=== PATIENT | male | born 1960 | race Caucasian/White ===

== ENCOUNTER 2020-09-09 08:20 | Day surgery (SDC) | payer OTHER ==
--- NOTE | 2020-09-09 07:50 | HP ---
DATE OF SURGERY: 09/09/2020 HISTORY OF PRESENT ILLNESS: The patient is a 59 year old with history of polyps, history of colon infection afterwards in the past. No bloody stools. No change in bowel movements. No abdominal pain. Family history negative for colon cancer. The patient years ago took some Asacol for some diverticular disease and inflammatory bowel disease, etiology is unclear at the time. He is in need of follow up colonoscopy given history of polyps. PAST MEDICAL HISTORY: No chronic illnesses. PAST SURGICAL HISTORY: Prior colonoscopy. MEDICATIONS: Asacol, aspirin, Nexium, Simvastatin, Probiotic. ALLERGIES: NKDA. FAMILY HISTORY: Negative for colon cancer. SOCIAL HISTORY: No alcohol abuse. REVIEW OF SYSTEMS: Fourteen systems reviewed negative or noncontributory as above and per preadmission questionnaire. PHYSICAL EXAMINATION: GENERAL: No acute distress. HEENT: Sclerae nonicteric. NECK: No JVD. CHEST: Equal excursion, nonlabored breathing. CVS: Regular rate and rhythm. ABDOMEN: Soft. No peritoneal signs. EXTREMITIES: No significant edema. NEURO: Alert, oriented, moving extremities symmetrically. No gross motor deficits noted. PSYCH: Appropriate mood and affect. IMPRESSION: History of polyps. He is in need of follow up colonoscopy. I feel the patient is a candidate. He was shown the risk sheet and explained the procedure in detail but not limited to bleeding or infection, risk of bowel injury or perforation possibly requiring open procedure, risk of missed or nondiagnosis or incomplete exam possibly requiring barium enema, other studies or procedures, general risk of anesthesia or sedation, bowel prep, risk of missed or nondiagnosis or incomplete exam possibly requiring barium enema, other studies or procedures. He understands and agrees to the planned procedure and will proceed with outpatient colonoscopy under MAC anesthesia.
[2020-09-09] MEDS ORDERED: Lactated Ringers 1,000 ML IV SCH (09:00)
[2020-09-09] MEDS ORDERED: Lactated Ringers 1,000 ML IV ONE (09:01)
[2020-09-09] MEDS ORDERED: DIPRIVAN 200 MG/20 ML IV ONE (10:12)
[2020-09-09 11:58] VITALS: BP 112/73; PULSE 69; O2SAT 97
--- NOTE | 2020-09-10 09:31 | OP ---
SURGERY DATE/TIME: 09/09/2020 1006 PREOPERATIVE DIAGNOSIS: History of polyps, need follow up screening colonoscopy. POSTOPERATIVE DIAGNOSES: 1) History of polyps, need follow up screening colonoscopy. 2) Polyps, diverticulosis. 3) Fair bowel prep. 4) ASA Class II. 5) Withdrawal time approximately 20 minutes including multiple polypectomies. PROCEDURES: 1) Colonoscopy to cecum. 2) Hot snare and hot biopsy polypectomy of small polyps in the transverse colon, one slightly flatter marked with ink spot tattooing transverse colon submucosa injection. 3) Hot snare and hot biopsy polypectomy of small sigmoid colon polyps. 4) Hot snare and hot biopsy polypectomy of small, smooth polyps rectosigmoid colon. 5) Hot biopsy removal of small early polyps versus hyperplastic lesion rectum. SURGEON: Dr. Vivek García. ANESTHESIA: MAC. ESTIMATED BLOOD LOSS: Minimal. INDICATIONS: As noted above. Risks and benefits explained in detail but not limited to and consent obtained. DESCRIPTION OF PROCEDURE AND FINDINGS: The patient is taken to the operating room. MAC anesthesia introduced. After official time out and no disagreement with planned procedure digital rectal exam did not reveal any rectal masses. He did have some minimal internal and external hemorrhoids. Video colonoscope inserted and passed up the tortuous sigmoid, descending, transverse and ascending colon. With external pressure was able to be passed around. The appendiceal orifice and ileocecal valve were photo documented. Prep overall was fair. There was a little bit of liquidy semi-solid stool throughout the colon. The scope slowly and carefully withdrawn. There were no signs of any large polyps, masses or obstructing lesions in the right colon. In the transverse colon small polyps ranging from 1.5 mm to 3 or 4 mm removed with a combination of hot biopsy as well as hot snare polypectomy. It should be noted there was a flatter polyp area was removed this is marked with 1 cc of submucosal ink spot tattooing to katia the location. The scope was then passed down through the left colon. He had a few scattered, tiny diverticula. The scope passed to the sigmoid colon. Additional small, smooth appearing polyps removed with a combination of hot snare polypectomy with brief bursts of cautery. Some of these polyps were 4 or 5 mm in size. The smaller ones removed with hot biopsy forceps. These and the ones towards the rectosigmoid were a little bit larger polyp. They had more of a smoother, hyperplastic type appearance. Additional ones removed in the rectosigmoid colon with hot snare with brief bursts of cautery with hot biopsy forceps removed the small polyps versus hyperplastic lesion in the rectum. Good hemostasis noted. The scope is withdrawn. The patient tolerated the procedure well. There were no signs of any large or obstructing lesions. There were multiple small polyps, multiple biopsy sites. Findings discussed with the family out in the waiting area. There were no immediate complications. I will see him back in the office week or two to go over the results. He may pass some blood given the multiple polypectomies and it usually clears on its own. He would call or return for any concerns or questions otherwise we will see him back in the office in a week or two.
== END 2020-09-09 11:55 | disposition home or self-care (01) ==
LOC: SDC 08:20
PROVIDERS: ATTEND Surgery
DX: Z12.11 Encounter for screening for malignant neoplasm of colon (principal); Z09 Encounter for follow-up examination after completed treatment for conditions other than malignant neoplasm; Z86.010 Personal history of colon polyps; K57.30 Diverticulosis of large intestine without perforation or abscess without bleeding; D12.7 Benign neoplasm of rectosigmoid junction
CPT/HCPCS: 88305; J2704